=== PATIENT | female | born 1955 | race Caucasian/White ===

== ENCOUNTER 2016-11-29 17:39 | Inpatient (IN) ==
[2016-11-29] MEDS ORDERED: NARCAN ONE (17:42)
[2016-11-29] MEDS ORDERED: NARCAN IV ONE (17:45)
[2016-11-29] MEDS ORDERED: NS 1,000 ML IV ONE (17:53)
[2016-11-29 18:08] LABS: BE 7.4 mmoll (-3.0-3.0); BLOOD TYPE ARTERIAL; DRAW SITE L RADIAL; METHB 0.7 % (0.0-1.5); O2(CT) 18.6 mL/dL (15.0-23.0); PCO2(98.6) 47 mmHg (35-45); PO2(98.6) 73 mmHg (60-100); SAMPLE BLOOD; SAO2 96.3 % (95.0-100.0); THB 14.7 g/dL (11.5-17.4); pH(98.6) 7.45 (7.35-7.45)
[2016-11-29 18:08] LABS: MANUAL DIFF NEEDED? NO
[2016-11-29 18:10] LABS: BASO% 0.4 % (0.0-0.8); EOS# 0.13 X1000 (0.0-0.7); EOS% 1.9 % (0.0-10.0); HEMATOCRIT 42.7 % (37.0-47.0); HEMOGLOBIN 14.4 g/dL (12.0-16.0); LYMPH# 2.59 X1000 (1.2-3.4); LYMPH% 37.5 % (20.5-51.1); MCH 31.3 PG (27-31); MCHC 33.7 g/dL (33-37); MCV 92.8 FL (81-99); MONO# 0.79 X1000 (0.11-0.59); MONO% 11.4 % (1.7-9.3); MPV 8.6 FL (7.4-10.4); NEUT% 48.8 % (42.2-75.2); PLT 289 X1000 (130-400)
[2016-11-29 18:10] LABS: ALLEN TEST YES; MODALITY ROOM AIR
[2016-11-29] MEDS ORDERED: HALDOL IV ONE ×3 (18:22→19:06)
[2016-11-29 18:26] LABS: INR 0.89 (0.86-1.15); PROTIME 12.4 Seconds (12.1-15.5)
[2016-11-29 18:30] LABS: AGAP 10; ALBUMIN 4.4 g/dL (3.5-5.0); ALKALINE PHOSPHATASE 81 U/L (32-104); BUN 13 mg/dL (8-22); CALCIUM 9.7 mg/dL (8.8-10.2); CHLORIDE 98 mmol/L (98-107); CK PROFILE 144 U/L (24-173); COSMO 277; GOT 19 U/L (10-30); GPT 21 U/L (10-36); POTASSIUM 3.5 mmol/L (3.5-5.1); SODIUM 139 mmol/L (136-145); TCO2 31 mmol/L (25-35)
--- NOTE | 2016-11-29 18:35 | EKG Report ---
Test Performed on : 11/29/2016 6:32:06 PM Test Reason : AMS Blood Pressure : / mmHG Vent. Rate : 107 BPM Atrial Rate : 107 BPM P-R Int : 130 ms QRS Dur : 082 ms QT Int : 332 ms P-R-T Axes : 084 078 074 degrees QTc Int : 443 ms Sinus tachycardia. Biatrial enlargement Abnormal ECG When compared with ECG of 29-NOV-2016 18:31, (Unconfirmed) No significant change was found Unconfirmed Result
[2016-11-29] MEDS ORDERED: BENADRYL IV ONE ×2 (18:38→19:07)
--- NOTE | 2016-11-29 19:01 | ED EKG INTERP ---
This chart was entered by Maryana Solorzano Scribe, acting as scribe for Chandra Thurman MD. EKG Interpretation - EKG Time of EKG reading by physician:: 18:32 EKG Read and Signed by:: Chandra Thurman EKG Interpretation (*Must complete 3 of following elements*): Abnormal Rate: 107 Rhythm: Sinus Tachycardia Comments: Abnormal ECG This chart was documented by the indicated scribe, (Maryana Solorzano Scribe) and accurately reflects the services I performed and decisions made by me, Chandra Thurman MD, as attested by the provider's signature.
[2016-11-29] MEDS ORDERED: LABETALOL IV ONE (19:21)
[2016-11-29 19:22] LABS: URINE CULTURE PL NEEDED? NO
[2016-11-29 19:28] LABS: BILIRUBIN URINE NEGATIVE (NEGATIVE); BLOOD URINE NEGATIVE (NEGATIVE); CLARITY CLEAR (CLEAR); COLOR YELLOW; GLUCOSE URINE NEGATIVE (NEGATIVE); LEUKOCYTES URINE NEGATIVE (NEGATIVE); NITRITE URINE NEGATIVE (NEGATIVE); PROTEIN URINE NEGATIVE (NEGATIVE); UROBILINOGEN URINE NORMAL
[2016-11-29 19:30] LABS: URINE SOURCE CATH
[2016-11-29 19:36] LABS: UR AMPHETAMINES QUAL PRESUMPTIVE POSITIVE (NONE DETECT); UR BARBITUATES QUAL NONE DETECTED (NONE DETECT); UR BENZODIAZEPIN QUAL PRESUMPTIVE POSITIVE (NONE DETECT); UR CANNABINOIDS QUAL NONE DETECTED (NONE DETECT); UR COCAINE QUAL NONE DETECTED (NONE DETECT); UR MDMA QUAL NONE DETECTED (NONE DETECT); UR METHADONE QUAL NONE DETECTED (NONE DETECT); UR METHAMPHETAMINE QUAL PRESUMPTIVE POSITIVE (NONE DETECT); UR OPIATES QUAL PRESUMPTIVE POSITIVE (NONE DETECT); UR OXYCODONE QUAL NONE DETECTED (NONE DETECT); UR PCP QUAL NONE DETECTED (NONE DETECT); UR TCA QUAL NONE DETECTED (NONE DETECT)
[2016-11-29] MEDS ORDERED: ATIVAN IV ONE ×4 (20:00→20:24)
[2016-11-29] MEDS ORDERED: ATIVAN ONE (20:18)
[2016-11-29] MEDS ORDERED: THORAZINE IV ONE (20:39)
[2016-11-29] MEDS ORDERED: NS IV ONE (20:39)
[2016-11-29] MEDS ORDERED: THORAZINE ONE (20:44)
[2016-11-29] MEDS ORDERED: NS 50 ML ONE (21:03)
--- NOTE | 2016-11-29 21:34 | PROVIDER DOCUMENTATION ---
This chart was entered by Purnima Fraga Scribe, acting as scribe for Chandra Thurman MD. HPI-General Adult - General Chief Complaint: Altered Mental Status Stated Complaint: ams Time Seen by Provider: 11/29/16 17:47 Source: EMS Allergies/Adverse Reactions: Patient Allergies Allergy/AdvReac Type Severity Reaction Status Date / Time ondansetron HCl * Allergy RASH Verified 11/29/16 17:43 [From Zofran (as hydrochloride)] Home Medications: Home Medication List Medication Instructions Recorded Confirmed Last Taken Type Albuterol Sulfate Inhaler 1 puff INH PRN PRN 08/02/15 10/15/15 08/18/15 History [Ventolin Hfa] Albuterol [Albuterol Neb] 2.5 mg INH Q6H PRN PRN 08/02/15 10/15/15 08/18/15 19: 30 History Alendronate Sodium 70 mg PO Q7D 08/02/15 10/15/15 08/16/15 History Aspirin 81 mg PO DAILY 08/02/15 10/15/15 08/18/15 History Budesonide/Formoterol Fumarate 2 puff INH BID 08/02/15 10/15/15 08/18/15 History [Symbicort 160-4.5 Mcg Inhaler] Hydrochlorothiazide 25 mg PO DAILY 08/02/15 10/15/15 08/18/15 History Isosorbide Mononitrate [Isosorbide 30 mg PO DAILY 08/02/15 10/15/15 08/18/15 History Mononitrate ER] Losartan Potassium 100 mg PO DAILY 08/02/15 10/15/15 08/18/15 History Pravastatin Sodium 80 mg PO QHS 08/02/15 10/15/15 08/17/15 History Famotidine [Pepcid] 20 mg PO DAILY #20 tablet 10/15/15 Unknown Rx Hydrocodone/APAP 5 mg/325 mg 1 each PO Q6H PRN PRN #14 tablet 10/15/15 Unknown Rx [[place]-5] Ketorolac [Toradol] 10 mg PO Q6H PRN PRN #20 tablet 10/15/15 Unknown Rx - History of Present Illness -Gen Adult Nature of Presenting Problems: 61 yo F presents to the ER via EMS after being found on the floor by her son, unknown down time. Pupils are pinpoint and nonreactive on EMS arrival. Pt is going in and out of sleeping. Onset/Duration: reports: just prior to arrival Review of Systems - Adult - REVIEW OF SYSTEMS - ADULT ROS:: unobtainable per condition Constitutional: denies: chills, fever Eyes: reports: no symptoms reported Ears, Nose, Mouth & Throat: reports: no symptoms reported Cardiovascular: denies: chest pain, palpitations Respiratory: denies: cough, shortness of breath Gastrointestinal: reports: no symptoms reported Genitourinary: reports: no symptoms reported Musculoskeletal: reports: no symptoms reported Integumentary: reports: no symptoms reported Neurological: reports: no symptoms reported Psychiatric: reports: no symptoms reported Endocrine: reports: no symptoms reported Hematologic/Lymphatic: reports: no symptoms reported Allergic/Immunologic: reports: no symptoms reported All Other Systems: Reviewed and Negative Past History - Adult - PAST MEDICAL HISTORY-ADULT Review of Records: reports: Nursing Assessment Review, Medications Reviewed Cardiovascular: reports: [place] Respiratory: reports: COPD - PRIOR SURGERIES/PROCEDURES Surgical/Procedure History: reports: cardiac stent, joint replacement - IMMUNIZATION STATUS Childhood Immunizations: See Nurse Assessment Flu Vaccine: See Nurse Assessment Physical Exam-General - PHYSICAL EXAM-ADULT Initial Vital Signs Reviewed: Yes - CONSTITUTIONAL General Appearance: lethargic - EYES Eyes: other (pinpoint pupils). negative: PERRL/EOMI - HEAD, EARS, NOSE, MOUTH & THROAT HENMT: normocephalic/atraumatic, normal ENT inspection - NECK Neck: supple, normal inspection - RESPIRATORY Respiratory: no respiratory distress, no accessory muscle use - CARDIOVASCULAR Cardiovascular: normal peripheral pulses, regular rate, rhythm - MUSCULOSKELETAL Back Exam: no CVA tenderness, no vertebral tenderness Extremity: normal gait, normal inspection Peripheral Pulses: radial (R): 2+, radial (L): 2+, dorsalis-pedis (R): 2+, dorsalis-pedis (L): 2+ - SKIN Integumentary: normal color, warm/dry - NEUROLOGIC Neurologic: grossly normal, no motor/sensory deficits Progress - PLAN OF CARE/RESULTS Progress/Plan/Lab Results: Vital Signs - 8 hr 11/29/16 17:39 Pulse Rate 75 Respiratory Rate 21 Blood Pressure 157/095 O2 Sat by Pulse Oximetry 99 Orders Category Date Time Status Naloxone [Narcan] Med 11/29/16 17:42 Discontinued 2 mg .ROUTE .STK-MED ONE Naloxone [Narcan] Med 11/29/16 17:45 Discontinued 2 mg IV NOW ONE Result Diagrams: 11/29/16 18:04 11/29/16 18:04 - XRAY 1 XRAY Study: Chest Impression: Normal - CT/MRI 1 CT Study: Head Impression: Normal Departure - Departure Time of Disposition Decision: 21:33 DIAGNOSIS: Methamphetamine abuse Altered mental status Qualifiers: Altered mental status type: stupor Qualified Code(s): R40.1 - Stupor Disposition: ADMITTED INPATIENT 09 Certified Medical Emergency: Emergent Condition: Fair - Critical Care Note This patient required my direct & personal management of CC.: No This chart was documented by the indicated scribe, (Purnima Fraga Scribe) and accurately reflects the services I performed and decisions made by me, Chandra Thurman MD, as attested by the provider's signature.
--- NOTE | 2016-11-29 21:45 | Diag Imaging Result Doc PS360 ---
EXAM: HEAD W/O CONTRAST INDICATION: AMS COMPARISON: None. FINDINGS: There is no definite acute infarct given the limited sensitivity of CT versus MRI. There is no discrete intracranial mass, mass effect, or intracranial hemorrhage. There is right sphenoid sinus mucosal thickening. Surrounding soft tissues and bony structures are essentially unremarkable, otherwise. IMPRESSION: No evidence of acute intracranial pathology. Electronically signed by Osmany Easton 11/29/2016 9:43 PM
--- NOTE | 2016-11-29 22:13 | Diag Imaging Result Doc PS360 ---
EXAM: CHEST-1 VIEW INDICATION: AMS TECHNIQUE: One view COMPARISON: 08/18/2015 FINDINGS: The lungs are grossly clear. There is no discrete pleural fluid collection or pneumothorax. The cardiomediastinal silhouette and central vasculature are grossly unremarkable. IMPRESSION: No evidence of acute pathology by plain radiograph. Electronically signed by Osmany Easton 11/29/2016 10:11 PM
[2016-11-30] MEDS ORDERED: DUONEB (A & A) INH PRN ×2 (08:06→08:57)
[2016-11-30] MEDS ORDERED: ZOFRAN IV PRN (08:06)
[2016-11-30] MEDS: NS 1,000 ML IV SCH ×2 (08:14)
[2016-11-30] MEDS ORDERED: SODIUM CHLORIDE 0.9% INJ SCH (08:30)
[2016-11-30 08:32] LABS: HEMATOCRIT 40.9 % (37.0-47.0); HEMOGLOBIN 13.5 g/dL (12.0-16.0); MPV 8.6 FL (7.4-10.4); RBC 4.35 XMIL (4.2-5.4)
[2016-11-30] MEDS ORDERED: DUONEB (A & A) ONE (08:48)
[2016-11-30] MEDS: PROTONIX IV SCH ×2 (08:51→20:02)
[2016-11-30 09:07] LABS: AGAP 7; ALBUMIN 3.9 g/dL (3.5-5.0); ALKALINE PHOSPHATASE 66 U/L (32-104); BUN 17 mg/dL (8-22); CALCIUM 8.9 mg/dL (8.8-10.2); CHLORIDE 102 mmol/L (98-107); COSMO 274; GOT 17 U/L (10-30); GPT 18 U/L (10-36); POTASSIUM 3.5 mmol/L (3.5-5.1); SODIUM 136 mmol/L (136-145); TCO2 26 mmol/L (25-35)
[2016-11-30] MEDS ORDERED: NS 1,000 ML IV SCH (09:08)
[2016-11-30] MEDS: ZOSYN 3.375 GM/NS 3.375 GM/50 ML IVPB IV SCH ×2 (10:07→20:02)
[2016-11-30] MEDS: DUONEB (A & A) INH SCH ×4 (10:50→22:50)
--- NOTE | 2016-11-30 12:08 | Diag Imaging Result Doc PS360 ---
EXAM: CHEST-PORTABLE INDICATION: dyspnea TECHNIQUE: One view COMPARISON: 11/29/2016 FINDINGS: The lungs are grossly clear. There is no discrete pleural fluid collection or pneumothorax. The cardiomediastinal silhouette and central vasculature are grossly unremarkable. IMPRESSION: No evidence of acute pathology by plain radiograph. Electronically signed by Osmany Easton 11/30/2016 12:05 PM
--- NOTE | 2016-11-30 12:13 | HISTORY AND PHYSICAL ---
CHIEF COMPLAINT: Unresponsive. HISTORY OF PRESENT ILLNESS: This is a 61-year-old female with a history of hypertension, CAD, and prior drug abuse. She presented to the ER via EMS after being found unresponsive by family members. The chart states EMS found the patient unresponsive with pinpoint pupils as they were on arrival to the emergency room. CT of the head was performed which revealed no definite acute infarct. It is unclear how long she was down. Reportedly the grandchild found her in the floor, she was then moved to a bed and 911 called. Unknown if she was injured. In the ER she was given Narcan- with no response per the chart. Ativan, labetalol, Haldol, and Benadryl, and admitted for further evaluation and treatment. PAST MEDICAL HISTORY: 1. CAD status post VT and PCI. 2. COPD. 3. Hypertension. 4. High cholesterol. 5. Chronic tobacco abuse. 6. Polysubstance drug abuse. SOCIAL HISTORY: She lives at home. She has a son and daughter that live close by that are active in her care. Her a few months ago and they state she has had depression and a hard time since then. REVIEW OF SYSTEMS: Unable to obtain due to the patient's mental status. PHYSICAL EXAMINATION: VITAL SIGNS: Blood pressure is 138/80, with a heart rate of 70, respirations are 21, with a temperature of 97.7 degrees, and oxygen saturations of 97 to 100% on room air. HEENT: Head is normocephalic, atraumatic. Pupils are pinpoint and nonreactive. Sclerae are anicteric. Mucous membranes are moist. NECK: Supple with trachea midline. CARDIOVASCULAR: Regular rate and rhythm. S1 and S2 appreciated. PULMONARY: She has rhonchi scattered throughout with some wheezes in the upper lobes. Chest does rise and fall symmetrically with respiration. GASTROINTESTINAL: Soft, nondistended, with bowel sounds in all 4 quadrants. : Kiran is patent to bedside bag with urine clear yellow. EXTREMITIES: No clubbing or cyanosis. Pulses are palpable x4. NEUROLOGIC: She is lethargic. Pupils are pinpoint, nonreactive. She responds to deep pain by moving all 4 extremities and nonpurposeful movements. She does not attempt to localize to the cause of pain. DIAGNOSTICS: WBC is 8.2 with a hemoglobin of 13.5, hematocrit 40.9, and platelets of 254,000. Sodium is 136, potassium 3.5, BUN 17, creatinine 0.7 with a glucose of 107. Her total bilirubin is 1.20. Urinalysis is essentially negative. Urine drug screen is positive for opiates, amphetamines, methamphetamines, and benzodiazepines. Chest x-ray revealed no acute processes. CT of the head revealed no evidence of intracranial pathology. ASSESSMENT: 1. Unresponsive secondary to presumed polysubstance overdose. 2. History of polysubstance abuse and use. 3. History of hypertension. 4. Chronic obstructive pulmonary disease. 5. Coronary artery disease status post myocardial infarction and percutaneous coronary intervention at an unknown time in the past. 6. Continued tobacco abuse. 7. Polysubstance abuse. PLAN: The patient will was placed in ICU per the ER. We will continue with monitoring. We will continue with neuro checks Q4H. . We will start DuoNeb q.4 hours or q.2 hours p.r.n. Nasal suction as needed. Sputum culture for C S and Gram stain. It is unclear if the patient aspirated being found unresponsive,the chance is high, will start Zosyn. We will continue to monitor telemetry. We will use beta blockers, metoprolol or labetalol to control blood pressure pn. . Patient will remain restrained as she has tried to pull her IV and other lines out as she is unaware of her surroundings at present. Will attempt to identify her home medications. The daughter states that the patient has actually been in group home before for drugs and she has been admitted for drug use in the past. She has also been in an inpatient rehab. The children state that she has been clean for quite some time , although her a few months ago and that she has been very depressed, had a hard time dealing with this. On arrival in the ICU , reportedly a baggy of white material was found in her bra, which was given to the police. We will repeat a chest x-ray today and in the morning. She will be placed on seizure precautions. Further treatments pending hospital course. Dictated by SUYAPA Arizmendi for Gunnar Velasquez MD cc: SUYAPA Arizmendi MD Seen and examined. Refer to my progress notes for today. QUINTIND
--- NOTE | 2016-11-30 13:46 | PROGRESS NOTE ---
DATE: 11/30/2016 SUBJECTIVE: This morning Ms. Mahmood continues to be extremely stuporous. Will on any interact upon very painful stimulation. She was, however, able to open her eyes and recognize her daughter and also call the granddaughter's name. OBJECTIVE: Vital signs: Blood pressure is 163/93, pulse of 68, respirations 19, temperature 97.1 degrees. General: Ms. Mahmood is a 61-year-old female. She was in bed. She did not seem to be in remarkable distress. HEENT: Mucosa is pink and moist. Anicteric. Acyanotic. Neck: Supple. Chest: Air entry is bilaterally reduced but I did not hear any crepitations or rhonchi. Cardiovascular: Regular rate and rhythm. Abdomen: Soft. No hepatosplenomegaly. Extremities: No pedal edema. READING AIDE: Patient is stuporous but will move very actively to painful stimulation. Will open her eyes to painful stimulation. Otherwise she will just go back to deep sleep. The patient has very pinpoint pupils bilaterally. There are sluggishly reactive. LABORATORY DATA: CBC is reviewed and is completely normal. Chemistry is reviewed and is completely normal. CK is 95. Review of imaging studies, a chest x-ray was done yesterday on presentation. It shows no evidence of acute pathology. A CT scan of the head was done. It shows no acute pathology. A repeat chest x-ray this morning also shows no consolidation. There is some congestion at the level of the pulmonary vasculature. The urine toxicology was positive for opioids, amphetamines, methamphetamines, and benzodiazepines. ASSESSMENT: 1. Altered mental status on presentation secondary to toxic encephalopathy. Urine toxicology is positive for all sorts of substances which we think is causing some of her altered mentation. I understand she was given Narcan when she came in and she moved a little bit. Obviously she is now able to recognize the daughters and the granddaughter so she seems to be doing a lot better. I would just keep symptomatic management for now with IV fluids and neuro checks more frequently. 2. History of chronic obstructive pulmonary disease. Chest sounds a little gurgling. I am not quite sure if she might have aspirated. Patient has been started on Zosyn. I plan to continue that. 3. History of drug abuse in the past. PLAN: So in general I think Ms. Mahmood seems to be improving from what I gather from her history. Will continue with IV fluids and a banana bag. I will add dextrose to the normal saline to make sure she gets some calories. Do neuro checks q.4 hours. Continue with the current antibiotics. Hopefully her neurological status will improve and her sensorium will clear shortly. cc: Gunnar Velasquez MD
[2016-11-30] MEDS ORDERED: M.V.I.-12 10 ML, FOLIC ACID 1 MG, MAGNESIUM SULFATE 1 GM, THIAMINE 100 MG in NS 1,000 ML IV SCH (14:00)
[2016-11-30] MEDS: D5 NS 1,000 ML IV SCH (19:38)
[2016-11-30] MEDS ORDERED: VASELINE TOP PRN (20:41)
[2016-12-01] MEDS: D5 NS 1,000 ML IV SCH (00:37)
[2016-12-01] MEDS: ZOSYN 3.375 GM/NS 3.375 GM/50 ML IVPB IV SCH ×2 (01:31→08:48)
[2016-12-01] MEDS: DUONEB (A & A) INH SCH ×3 (02:40→11:35)
[2016-12-01 07:41] LABS: HEMATOCRIT 38.6 % (37.0-47.0); HEMOGLOBIN 12.8 g/dL (12.0-16.0); MCHC 33.2 g/dL (33-37); MCV 93.5 FL (81-99); MPV 9.1 FL (7.4-10.4); RBC 4.13 XMIL (4.2-5.4)
[2016-12-01 07:49] LABS: AGAP 11; ALBUMIN 3.6 g/dL (3.5-5.0); ALKALINE PHOSPHATASE 66 U/L (32-104); BUN 10 mg/dL (8-22); CALCIUM 8.7 mg/dL (8.8-10.2); CHLORIDE 104 mmol/L (98-107); COSMO 280; GOT 15 U/L (10-30); GPT 15 U/L (10-36); POTASSIUM 3.1 mmol/L (3.5-5.1); SODIUM 140 mmol/L (136-145); TCO2 26 mmol/L (25-35); TOTAL PROTEIN 5.9 g/dL (6.3-8.3)
--- NOTE | 2016-12-01 08:15 | Diag Imaging Result Doc PS360 ---
CHEST-PORTABLE - 12/01/2016 INDICATION: dyspnea TECHNIQUE: COMPARISON: 11/29/2016 FINDINGS: There is a pulmonary nodular density in the left lung base laterally. This measures about 1.6 cm. Heart size is normal. IMPRESSION: Pulmonary nodule in the left lung base. Chest CT recommended. Electronically signed by Edgar Barrett 12/01/2016 8:13 AM
[2016-12-01] MEDS ORDERED: KLOR-CON PO SCH (09:00)
--- NOTE | 2016-12-01 09:15 | PROGRESS NOTE ---
DATE: 12/01/2016 SUBJECTIVE: Patient is much more awake, alert, oriented this morning. She is in no respiratory distress. She is pleasant to talk with. She admits that she took something she should not have. Denies any chest pain, palpitations. OBJECTIVE: Vital Signs: Temperature 98, pulse 78, respiratory 25, BP 148/82, saturation 95% on room air. General: The patient is awake, alert, oriented. She is currently no respiratory distress. Pleasant to talk with. Neck: Supple. Cardiovascular: Regular rate. Chest: Relatively clear. Abdomen: Soft. Extremities: Moves all extremities. Neurologic: No focal changes. Skin: Warm and dry. No rashes. LABS: Potassium 3.1, glucose 130, albumin 1.5. ASSESSMENT: 1. Hypokalemia, will replace. 2. Acute metabolic encephalopathy secondary to intentional drug over usage, resolved. 3. Chronic obstructive pulmonary disease. PLAN: We will continue patient on Zosyn today. Move to the floor. Further orders as needed. cc: Rodri Mar MD
[2016-12-01 10:10] VITALS: BP 155/92
--- NOTE | 2016-12-02 12:36 | DISCHARGE SUMMARY ---
ADMISSION DATE: 11/29/2016 DISCHARGE DATE: 12/01/2016 ADMISSION DIAGNOSES: 1. Unresponsive secondary to presumed polysubstance overdose. 2. History of polysubstance abuse and use. 3. History of hypertension. 4. Chronic obstructive pulmonary disease. 5. Coronary artery disease, status post an [place] and percutaneous coronary intervention at an unknown time in the past. 6. Tobacco abuse. DISCHARGE DIAGNOSES: 1. Unresponsive secondary to presumed polysubstance overdose. 2. History of polysubstance abuse and use. 3. History of hypertension. 4. Chronic obstructive pulmonary disease. 5. Coronary artery disease, status post an [place] and percutaneous coronary intervention at an unknown time in the past. 6. Tobacco abuse. Note: This is an AMA discharge. SUMMARY OF FINDINGS: This is a 61-year-old female who presented to the emergency room via EMS after being found unresponsive by family members. EMS records stated that they found the patient unresponsive with pinpoint pupils, as they were when she arrived to the emergency room. CT of the head showed no acute infarct. It was unclear how long she was down; reportedly, the grandchild found her in the floor. She was then moved to a bed and 911 called. Unknown if there was any injury. In the ER she was given Narcan with no response per the chart. Ativan, labetalol, Haldol, and Benadryl were given. She was admitted to intensive care. She was instructed on stopping any substance abuse. Her urine drug screen was positive for opiates, amphetamines, methamphetamines and benzodiazepines. Again, she made the decision to leave AMA from the intensive care unit yesterday. DISCHARGE TIME: 35 minutes. Dictated by SUYAPA Ariza for Rodri Mar MD cc: SUYAPA Ariza MD
== END 2016-12-01 11:40 | disposition left against medical advice (07) ==
LOC: P.ED 17:39 → SUATTDRO 21:56 → P.ICU 21:56
PROVIDERS: ATTEND Family Medicine